=== PATIENT | female | born 1995 | race African-American/Black ===

== ENCOUNTER 2023-04-19 09:51 | Emergency (ER) | payer MEDICAID ==
[~2023-04-19] VITALS: Ht 175.3 cm; Wt 59.0 kg
[2023-04-19 09:54] VITALS: O2SAT 100
[2023-04-19 10:38] LABS: BASOPHILS % 0.6 % (0.0-2.0); EOSINOPHILS % 0.8 % (0.0-5.0); HEMATOCRIT. 36.9 % (36.0-48.0); HEMOGLOBIN. 12.2 g/dL (12.0-16.0); LYMPHOCYTES % 30.7 % (20.0-50.0); MEAN CORPUSCULAR HGB CONC 33.1 g/dL (31.0-37.0); MEAN CORPUSCULAR VOLUME 90.4 fL (81.0-99.0); MEAN PLATELET VOLUME 9.7 fl (7.4-10.4); MONOCYTES % 8.1 % (2.0-8.0); NEUTROPHILS % 59.8 % (40.0-76.0); PLATELET 224 x1000/uL (130-400); RED BLOOD CELL COUNT 4.08 mill/uL (4.2-5.4); RED CELL DISTRIBUTION WIDTH 13.1 % (11.6-14.6); WHITE BLOOD COUNT 6.2 x1000/uL (4.5-11.0)
[2023-04-19 10:56] LABS: ACETAMINOPHEN < 2 ug/mL (10-30); ALANINE AMINOTRANSFERASE 9 IU/L (10-49); ALBUMIN 4.3 g/dL (3.2-4.8); ASPARTATE AMINOTRANSFERASE 18 IU/L (<34); BILIRUBIN TOTAL 0.7 mg/dL (0.1-1.0); CALCIUM 9.1 mg/dL (8.7-10.4); CARBON DIOXIDE 28 mEq/L (21-32); CHLORIDE 107 mEq/L (98-107); CREATININE 0.7 mg/dL (0.6-1.0); GLUCOSE 111 mg/dL (70-105); POTASSIUM 3.2 mEq/L (3.5-5.1); PROTEIN TOTAL 7.3 g/dL (6.0-8.3); SODIUM 139 mEq/L (136-145); UREA NITROGEN BLOOD 8 mg/dL (9-23)
[2023-04-19 10:57] LABS: HCG SCREEN NEGATIVE
[2023-04-19 11:00] LABS: ETHANOL BLOOD < 10 mg/dL (<10)
[2023-04-19 11:05] LABS: CLARITY URINE CLEAR (CLEAR); COLOR URINE DARK YELLOW (YELLOW); GLUCOSE URINE NEGATIVE (NEGATIVE); KETONES URINE TRACE (NEGATIVE); LEUKOCYTE ESTERASE URINE NEGATIVE (NEGATIVE); NITRITE URINE NEGATIVE (NEGATIVE); OCCULT BLOOD URINE NEGATIVE (NEGATIVE); PROTEIN URINE TRACE (NEGATIVE); SPECIFIC GRAVITY URINE 1.035 (1.005-1.030)
[2023-04-19 11:18] LABS: BACTERIA URINE TRACE; RBC URINE 0-2 /hpf (0-2); SQUAMOUS EPITHELIAL CELL URINE 2+ /lpf (RARE/1+); WBC URINE 0-2 /hpf (0-2); YEAST URINE NONE SEEN
[2023-04-19 11:19] LABS: MUCUS URINE 1+ /lpf (< = 2+)
[2023-04-19 11:32] LABS: *AMPHETAMINES SCREEN URINE NEGATIVE (NEGATIVE); *BARBITURATES SCREEN URINE NEGATIVE (NEGATIVE); *BENZODIAZEPINES SCREEN URINE NEGATIVE (NEGATIVE); *COCAINE SCREEN URINE NEGATIVE (NEGATIVE); CANNABINOID URINE SCREEN NEGATIVE (NEGATIVE); ECSTASY MDMA SCREEN URINE NEGATIVE (NEGATIVE); METHADONE URINE SCREEN Neg (NEGATIVE); OPIATES URINE SCREEN NEGATIVE (NEGATIVE); PHENCYCLIDINE URINE SCREEN NEGATIVE (NEGATIVE)
[2023-04-19] MEDS: POTASSIUM CHLORIDE 20MEQ TABLET SR PO ONE (12:58)
[2023-04-19 18:30] VITALS: BP 122/76; PULSE 78; RESP 16; TEMP 98.1
== END 2023-04-19 23:19 | disposition home or self-care (01) ==
LOC: ER 09:51
DX: R46.2 Strange and inexplicable behavior (principal); E87.6 Hypokalemia; Z86.59 Personal history of other mental and behavioral disorders
CPT/HCPCS: 36415; 80053; 80305; 80307; 80320; 80329; 81003; 82962; 84703; 85025; 99284; G0480

== ENCOUNTER 2023-06-26 11:32 | Emergency (ER) | payer MEDICAID ==
[~2023-06-26] VITALS: Ht 172.7 cm; Wt 64.0 kg
[2023-06-26 11:38] VITALS: O2SAT 100
[2023-06-27 10:00] VITALS: BP 123/57; PULSE 70; RESP 17; TEMP 98.5
== END 2023-06-27 10:40 | disposition home or self-care (01) ==
LOC: ER 11:32
DX: T76.21XA Adult sexual abuse, suspected, initial encounter (principal); R52 Pain, unspecified; X58.XXXA Exposure to other specified factors, initial encounter
CPT/HCPCS: 99285